=== PATIENT | female | born 1945 | race Caucasian/White ===

== ENCOUNTER → 2017-03-27 | Outpatient (CLI) | payer OTHER ==
--- NOTE | 2017-04-11 14:54 | MAMMOGRAPHY REPORT ---
THIS REPORT HAS BEEN AMENDED. BILATERAL DIGITAL SCREENING MAMMOGRAM WITH CAD: 03/27/2017 CLINICAL HISTORY: Routine screening. Patient has no complaints. TECHNIQUE: Current study was also evaluated with a Computer Aided Detection (CAD) system. Bilateral CC and MLO views were obtained. COMPARISON: No prior exams were available for comparison. Prior outside mammograms have been reques theresa although are not available at this time. BREAST COMPOSITION: The tissue of both breasts is heterogeneously dense, which may obscure small mas ses. FINDINGS: There is a 10 mm asymmetry seen within the left superior posterior breast on the MLO view, for which comparison with prior outside mammograms is recommended for further evaluation. The remai nder of both breasts demonstrate no suspicious masses, calcifications, or areas of architectural dist ortion, although comparison with outside prior mammograms is recommended to evaluate for any possible subtle changes. Scattered bilateral benign appearing calcifications are noted. IMPRESSION: ACR BI-RADS CATEGORY 0: INCOMPLETE EVALUATION: NEED ADDITIONAL IMAGING EVALUATION Left breast asymmetry, for which comparison with outside prior mammograms is recommended for further evaluation. The prior outside mammograms have been requested, and an addendum will be made when they are received and a comparison is made. If the outside prior mammograms cannot be obtained in a time ly manner, then recommend additional imaging evaluation with spot compression tomosynthesis views and possible breast ultrasound. Approximately 10% of breast cancers are not detected with mammography. A negative mammographic report should not delay biopsy if a clinically suggestive mass is present. Yesi Beatty M.D. ah/:04/11/2017 07:49:27 Waste Removalist: Orly Patterson M, [facility] letter sent: Need Priors 0 BI-RADS Code: ACR BI-RADS Category 0: Incomplete Evaluation: Need Additional Imaging Evaluation AMENDMENT: 04/16/2017 Yesi Beatty M.D. Prior outside mammograms dated 07/21/2014, 05/17/2013, 05/15/2012, 05/03/2011, 02/23/2010 from [facility] have become available for comparison. Compared to the prior exams, the asymmetry in th e left superior breast on the MLO view is more prominent. Although this likely represents normal ove rlapping fibroglandular tissue, recommend spot compression tomosynthesis views, left XCCL view, and p ossible breast ultrasound for further evaluation. The remainder of both breasts are stable compared to prior exams, without suspicious masses, calcifications, or areas of architectural distortion noted . The patient will be called to schedule an appointment. Amended BI-RADS: ACR BI-RADS Category 0: Incomplete Evaluation: Need Additional Imaging Evaluation letter sent: [facility] 0
== END | disposition home or self-care (01) ==
LOC: C.MAMM 13:12
PROVIDERS: ATTEND Nurse Practitioner Family
DX: Z12.31 Encounter for screening mammogram for malignant neoplasm of breast (principal)

== ENCOUNTER → 2017-04-23 | Outpatient (CLI) | payer OTHER ==
--- NOTE | 2017-04-23 15:47 | MAMMOGRAPHY REPORT ---
UNILATERAL LEFT DIGITAL DIAGNOSTIC MAMMOGRAM TOMOSYNTHESIS AND TARGETED LEFT ULTRASOUND: 04/23/2017 CLINICAL HISTORY: 71 year old woman called back from screening mammography for a 9 mm asymmetry in th e posterior left breast, along the posterior nipple line on the MLO view. TECHNIQUE: Spot compression left CC and MLO 2-D and tomosynthesis images, and exaggerated lateral CC 2-D and tomosynthesis images were obtained. COMPARISON: Comparison is made to exams dated: 03/27/2017 mammogram - [facility], mammogram, 05/17/2013 mammogram, 05/15/2012 mammogram, 05/03/2011 mammogram, and 02/23/2010 mamm ogram - [facility]. BREAST COMPOSITION: The tissue of the left breast is heterogeneously dense, which may obscure small masses. FINDINGS: There is effacement of the 9 mm asymmetry in the posterior left breast on the spot winnie radhames MLO view. No persistent abnormality is seen on the corresponding tomosynthesis images. No foca l area of architectural distortion or obvious mass. No suspicious abnormalities are seen on the exag gerated lateral or spot compression CC views. There are mild vascular calcifications. Further evalu ation with ultrasound was performed. Targeted ultrasound was performed in the lateral breast from the 12:00 to 4:00 axes, and in the media l left breast from the 8:00 through 12:00 axes. There is an oval parallel isoechoic solid-appearing mass in the 12:30 left breast periareolar region, measuring 4.0 x 1.9 x 4.1 mm. This is incidentally identified and not seen mammographically even in retrospect. No other discrete solid or cystic mass is seen. Given the solid nature, definitive characterization with an ultrasound guided core needle biopsy is recommended. IMPRESSION: ACR BI-RADS CATEGORY 4: SUSPICIOUS, TARGETED ULTRASOUND ACR BI-RADS CATEGORY 4: SUSPICIO US 1. Ultrasound guided core needle biopsy is recommended for a solid circumscribed parallel indetermin ate 4 mm mass in the 12:30 periareolar left breast that was incidentally identified on ultrasound. 2. The 9 mm asymmetry in the posterior left breast along the posterior nipple line on the MLO view e ffaces with additional supplemental mammographic and tomosynthesis images, and no suspicious sonograp hic correlate was seen. This most likely represented normal overlapping tissue and is considered shiela ign. 3. After discussing these results and recommendations with the patient at the time of the exam, give n that the indeterminate mass in the left breast was incidentally seen on ultrasound, we will perform a right breast whole breast ultrasound, and ultrasound of the 4:00 through 8:00 inferior axis of the left breast, prior to the biopsy in the left breast to ensure no other incidental findings, given th e personal history of dense breasts (60 minutes). Approximately 10% of breast cancers are not detected with mammography. A negative mammographic report should not delay biopsy if a clinically suggestive mass is present. Kim Baker M.D. ay/:04/23/2017 14:55:55 Health And Safety Specialist: Caron GOOWDIN(Orly)(M), [facility] letter sent: Abnormal 4/5 BI-RADS Code: ACR BI-RADS Category 4: Suspicious Ultrasound BI-RADS: ACR BI-RADS Category 4: Suspici ous
== END | disposition home or self-care (01) ==
LOC: C.MAMM 13:29
PROVIDERS: ATTEND Nurse Practitioner Family
DX: N63.0 Unspecified lump in unspecified breast (principal); R92.8 Other abnormal and inconclusive findings on diagnostic imaging of breast

== ENCOUNTER → 2017-04-28 | Outpatient (CLI) | payer OTHER ==
--- NOTE | 2017-04-28 13:47 | Discharge Instructions ---
Discharge Instructions Procedure Procedure Date: Apr 28, 2017. Reason for visit: Left Mass/Us Complete Right. Discharge Discharge Date: Apr 28, 2017. Discharge Diagnosis: post left breast ultrasound guided core biopsy x 2 Instructions Activity Recommendations: Additional Limitations (see below) Return to School/Work: no limitations Recommended Home Diet: No Limitations Provider Instructions: ACTIVITY RECOMMENDATIONS: * No lifting, pushing, pulling or exercising the affected side for three days. RETURN TO SCHOOL/WORK: * You may return to work/school after the procedure, but do not perform any strenuous activities for 24 to 48 hours. MEDICATIONS: * Tylenol (two 325 mg) every four to six hours if needed for mild pain (if not allergic to Tylenol). DIET: * Resume previous diet. SPECIAL CARE INSTRUCTIONS: * Keep biopsy site dry for 24 hours. May shower after 24 hours, but do not soak (bathe) incision. * May remove Tegaderm (plastic patch) tomorrow AFTER showering. * Leave the steri-strips on for one week. Allow the steri-strips to fall off by themselves. If not off after one week, you may remove them. You may place a Bandaid crosswise over the strips, if desired. * Apply ice 10 minutes on and 10 minutes off as needed. * Wear a bra at bedtime to sleep more comfortably for 2-3 days. * Your referring physician should have the results after approximately 5 to 7 business days. * Call for unusual bleeding, fever, drainage, etc or if you have any questions call [phone] during normal business hours or after hours call Dr Baker, . FOLLOW UP VISIT: Follow-up with Referring Physician as scheduled. Zhen Garrett Recommendations: Call your doctor if: * Temperature above 101 degrees * Pain not relieved by pain medicine ordered * There is increased drainage or redness from any incision * You have any unanswered questions or concerns. Your Doctors Instructions noted above were prepared by provider Kim Baker. Patient Signature Section: Patient Instructions Signature Page Avani Paulino Patient (or Guardian) Signature/Date: I have read and understand the instructions given to me by my caregivers. Caregiver/RN/Doctor Signature/Date: The above-named patient and/or guardian has received patient instructions on this date. + Original Patient Signature Page (only) stays with chart. Please make copy for patient.
--- NOTE | 2017-04-29 07:34 | MAMMOGRAPHY REPORT ---
MULTIPLE ULTRASOUND GUIDED BIOPSIES LEFT BREAST: 04/28/2017 CLINICAL HISTORY: 2 indeterminate solid appearing masses in the left breast at 12:00 and 5:00 which w ere incidentally identified on ultrasound. Patient presents for left breast ultrasound guided core b iopsy 2. COMPARISON: Comparison is made to exams dated: 04/23/2017 ultrasound, 04/23/2017 mammogram, 7 mammogram - [facility], 07/21/2014 mammogram, 05/17/2013 mammogram, and 05/15/2012 ma mmogram - [facility]. PATIENT CONSENT: The procedure, risks and benefits were discussed with the patient and informed conse nt was obtained both verbally and in writing. Specific risks to this procedure include: bleeding, in fection, puncture of adjacent structure, nontarget biopsy, sampling error, pain, metal allergy and me dication reaction. PROCEDURE DESCRIPTION: A time out was performed and the left breast was agreed as the site of biopsy. Intended targets for the procedure are a circumscribed parallel oval subcentimeter mass in the 12:0 0 left breast, and isoechoic mass versus fat lobule in the 5:00 periareolar left breast. The skin of the left breast was prepped and draped in the usual sterile fashion. First, the oval cir cumscribed solid mass in the 12:00 breast was chosen as the target for biopsy. Subcutaneous and intra parenchymal 1% buffered lidocaine, with and without epinephrine, was administered as local anesthesia . A skin incision was made. Through the incision, 5 samples were taken with a 14 gauge Achieve biops y device. A ribbon shaped metallic marker was placed at the biopsy site. Hemostasis was achieved afte r manual compression. Then, the hypoechoic fat lobules versus mass in the 5:00 left breast was identified and targeted for biopsy. Additional sub-cutaneous and intraparenchymal 1% buffered lidocaine with and without epineph rine was administered. A skin incision was made. Through the incision, 3 samples were obtained with a 14-gauge achieve biopsy device. A wing-shaped metallic biopsy marker was placed at the site. Hem ostasis was achieved after manual compression. The patient tolerated the procedures well and there was no immediate complication. The samples were sent to the pathology department in appropriately labeled containers. Postprocedure left CC and ML tomosynthesis images were obtained. 2 new metallic biopsy markers are i dentified in the left breast at 12:00 and 5:00 in the middle one third of the breast. No significant postbiopsy hematoma is seen. The original asymmetry seen on the 03/27/2017 screening mammogram is n o longer identified, again suggesting it represented normal overlapping tissue. IMPRESSION: ULTRASOUND GUIDED BIOPSY Status post ultrasound guided core needle biopsy 2 in the left breast at 12:00 and 5:00, with biopsy marker clips placed at each site. The patient will receive notification of the biopsy results from her referring physician. Kim Baker M.D. ay/:04/28/2017 15:41:38 Attending Technologist: Nathan GOODWIN(R)(M), [facility] Financial Brokers: Dr. Kim Baker, [facility]
--- NOTE | 2017-04-29 07:34 | MAMMOGRAPHY REPORT ---
ULTRASOUND GUIDED BIOPSY: 04/28/2017 CLINICAL HISTORY: 2 indeterminate solid-appearing masses in the left breast at 12:00 and 5:00. Jeanne nt presents for ultrasound guided core biopsy 2. Please refer to the report from left breast ultrasound guided core biopsy performed at the same time for full detail. IMPRESSION: ULTRASOUND GUIDED BIOPSY Please refer to the report from left breast ultrasound guided core biopsy performed at the same time for full detail. Kim Baker M.D. ay/:04/28/2017 13:56:44 Managed Care Director: Nathan GOODWIN(R)(M), [facility]
--- NOTE | 2017-04-29 07:36 | MAMMOGRAPHY REPORT ---
UNILATERAL LEFT DIGITAL DIAGNOSTIC MAMMOGRAM TOMOSYNTHESIS: 04/28/2017 CLINICAL HISTORY: 2 indeterminate solid appearing masses in the left breast at 12:00 and 5:00. Patilast nt presents for ultrasound-guided core biopsy 2. Please refer to the report from left breast ultrasound guided core biopsy performed at the same time for full detail. IMPRESSION: POST PROCEDURE IMAGING FOR MARKER PLACEMENT Please refer to the report from left breast ultrasound guided core biopsy performed at the same time for full detail. Approximately 10% of breast cancers are not detected with mammography. A negative mammographic report should not delay biopsy if a clinically suggestive mass is present. Kim Baker M.D. ay/:04/28/2017 13:57:44 Manager Data Warehousing: Nathan GOODWIN(R)(M), [facility] BI-RADS Code: Post Procedure Imaging For Marker Placement
--- NOTE | 2017-04-29 07:36 | MAMMOGRAPHY REPORT ---
ULTRASOUND OF BOTH BREASTS: 04/28/2017 CLINICAL HISTORY: Small 3 mm hypoechoic mass incidentally identified in the left 12:00 breast on ultr asound. Patient presents for complete right breast ultrasound and ultrasound left 5:00, 6:00 and 7:0 0 breast which was not performed during the targeted ultrasound on 04/23/2017, given the incidental f inding in the 12:00 left breast and personal history of dense breasts. COMPARISON: Comparison is made to exams dated: 04/23/2017 ultrasound, 04/23/2017 mammogram, 7 mammogram - [facility], 07/21/2014 mammogram, 05/17/2013 mammogram, and 05/15/2012 ma mmogram - [facility]. FINDINGS: Real-time high-resolution sonographic evaluation was performed throughout the entire right breast including the right axilla. The breast parenchymal echotexture is heterogeneousdense. There is a small anechoic oval parallel simple cyst versus focal duct ectasia in the 2:00 right breast, 1 cm from the nipple, measuring 2.6 x 2.9 mm. No other suspicious solid or cystic mass is seen through out the right breast including the retroareolar aspect of the breast. No suspicious right axillary l ymphadenopathy is identified. Targeted ultrasound also performed in the inferior left breast, 5:00, 6:00 and 7:00 axes demonstrates a prominent hypoechoic fat lobule versus solid mass in the 5:00 periareolar left breast, measuring 6 .1 x 3.3 x 6.2 mm. This is indeterminate and ultrasound-guided core biopsy is recommended at the marleny e time as biopsy in the 12:00 left breast, which were both performed during this same appointment. IMPRESSION: ACR BI-RADS CATEGORY 4: SUSPICIOUS - FOLLOW-UP RECOMMENDED 1. Complete right breast ultrasound demonstrates a small benign 2 mm cyst versus focal duct ectasia in the 2:00 right breast. No suspicious abnormality or sonographic evidence of malignancy. No suspi cious right axillary lymphadenopathy identified on ultrasound. 2. A prominent 6 mm fat lobule versus benign appearing solid mass in the 5:00 left breast is indeter minate, warranting definitive characterization with an ultrasound-guided core biopsy. This was performed during the same appointment in conjunction with the ultrasound guided core biopsy of a benign-appearing solid mass in the 12:00 left breast. Please refer to a separate report for dixon coleman. Kim Baker M.D. ay/:04/28/2017 13:55:56 Promotion Manager: Dr. Kim Baker, [facility] letter sent: Abnormal 4/5 BI-RADS Code: ACR BI-RADS Category 4: Suspicious
== END | disposition home or self-care (01) ==
LOC: C.MAMM 12:32
PROVIDERS: ATTEND Nurse Practitioner Family
DX: N63.20 Unspecified lump in the left breast, unspecified quadrant (principal)